=== PATIENT | male | born 2000 | race Caucasian/White ===

== ENCOUNTER 2023-12-19 10:41 | Outpatient (CLI) | payer BC, SELFPAY ==
--- NOTE | 2023-12-19 10:00 | DI.RAD_ITS ---
Exam(s) XR TOE RT GREAT XR TOE LT GREAT EXAM: XR TOE RT GREAT CLINICAL HISTORY: comparison, pain in rt foot, M79.671. TECHNIQUE: 2D digital imaging was performed. Three views of both great toes. COMPARISON: CR XR TOE LT GREAT from 12/19/2023 FINDINGS: BONES: No acute fracture is present. No bony destructive lesion is seen. JOINTS: No dislocation present. SOFT TISSUE: Swelling around the distal phalanx of left great toe, greater beneath the level of the n ail bed. No foreign body or abnormal gas collection. IMPRESSION: Soft tissue swelling of the left great toe. DATA REPOSITORY: RADIATION DOSE DELIVERED:
== END 2023-12-19 11:01 ==
PROVIDERS: PCP Nurse Practitioner Family; Visit Provider Podiatrist
DX: M79.671 Pain in right foot (principal); L03.032 Cellulitis of left toe
CPT/HCPCS: 73660

== ENCOUNTER 2024-06-02 21:09 | Emergency (ER) | payer BC, SELFPAY ==
--- NOTE | 2024-06-02 21:00 | RT.EKG_ITS ---
APPROVED REPORT Exam: Resting ECG Reason for Exam: chest pain Patient Location: E HR:80 bpm ECG Measurements Heart Rate 80 AXIS IA 120 P 46 QRSd 81 QRS 93 QT 370 T 57 QTc 428 Conclusion Sinus rhythm...normal P axis, V-rate 60- 99 ST elev, probable normal early repol pattern...ST elevation, age<55
[2024-06-02 21:14] VITALS: BP 132/74; PULSE 80; RESP 24; TEMP 37.1; O2SAT 96
[2024-06-02 21:18] VITALS: BP 132/74; PULSE 80; RESP 24; TEMP 37.1; O2SAT 96
--- NOTE | 2024-06-02 21:32 | W.ED.GENAD ---
Discharge Plan Disposition Patient Disposition: Home Condition: Stable Discharge Details Clinical Impression: Nausea vomiting and diarrhea Primary Care Provider: Harman Hilario ED Provider: Nell Castro Home Meds and New Rx's Prescriptions: No Action escitalopram oxalate 20 mg tablet 20 mg PO DAILY Qty: 90 4RF sulfamethoxazole-trimethoprim [Bactrim DS] 800-160 mg tablet 1 tab PO Q12H Qty: 14 0RF Discharge Instructions Instructions: Diarrhea, Adult ED, Nausea and Vomiting, Adult ED Additional Instructions: Please take the nausea medication as directed 20 to 30 minutes before eating or drinking anything. Small sips of fluid. Start with clear liquids and then a bland diet as tolerated. Stay away from anything fried, fatty, spicy or dairy. Please take Tylenol or Ibuprofen with food every 4-6 hours as needed for pain and swelling. Follow up with primary care provider in 3-5 days. Return to ED sooner if any worsening or concerns. Please drink Gatorade or other electrolyte drink while having diarrhea. Referrals: Harman Hilario, [facility] [Primary Care Provider] - 3 days HPI General Mode of arrival: ambulatory. Date/Time Provider Initiated Documentation: 06/02/24 21:21. Limitations to Documentation: no limitations. Information obtained by: patient, RN notes reviewed and old records reviewed. HPI Narrative: 23-year-old male presents to the ER with a chief complaint of midepigastric abdominal pain, diarrhea and vomiting this occurred approximately 1 PM today. He did eat some leftover Posta prior to onset of symptoms. He does endorse smoking marijuana daily last smoked last night. Reports occasional alcohol, he does report radiation of pain into his back. Decreased urination. Patient denies any drug use. Related Data Home Medications ?Medication ?Instructions ?Recorded ?Confirmed escitalopram oxalate 20 mg tablet 20 mg PO DAILY #90 tabs 02/15/23 01/01/24 sulfamethoxazole 800 1 tab PO Q12H #14 tabs 02/15/23 01/01/24 mg-trimethoprim 160 mg tablet (Bactrim DS) Previous Rx's ?Medication ?Instructions ?Recorded escitalopram oxalate 20 mg tablet 20 mg PO DAILY #90 tabs 02/15/23 sulfamethoxazole 800 1 tab PO Q12H #14 tabs 02/15/23 mg-trimethoprim 160 mg tablet (Bactrim DS) Allergies Allergy/AdvReac Type Severity Reaction Status Date / Time No Known Allergies Allergy Unverified 02/15/23 11:55 General Stated Complaint: Abd Prob LISBETH: 3 Review of Systems All systems reviewed & are unremarkable except as noted in HPI and below Gastrointestinal Gastrointestinal: Reports abdominal pain, Reports diarrhea, Reports nausea and Reports vomiting Exam Narrative Exam Narrative: Constitutional: Alert and oriented x3. Appears stated age. Normal body habitus. Head: Normocephalic, no trauma. Eyes: Pupils PERRL, Red reflex noted, EOM's intact. Eyelids symmetrical without lesions, discharge, or swelling. Chest: RRR, Normal S1, S2, distal pulses intact. Resp: Lungs clear to auscultation bilaterally, no wheezes, rales, or rhonchi. Abdomen: Soft, non-distended, Normoactive bowel sounds all 4 quads. Musculoskeletal: Normal gait, Moves all 4 extremities without difficulty. Skin: No suspicious rashes or lesions. Capillary refill less than 2 sec. Neurologic: Cranial nerves II-XII intact. Alert and oriented x 3. Motor: No deficits noted. Sensory: Intact bilaterally all 4 extremities. Hematologic/Lymphatic: No ecchymosis, no lymphadenopathy. Course Vital Signs Vital signs: Vital Signs Temperature 37.1 C 06/02/24 21:14 Pulse 80 06/02/24 21:14 Respiratory Rate 24 06/02/24 21:14 Blood Pressure 132/74 06/02/24 21:14 Pulse Oximetry 96 06/02/24 21:14 Temperature 37.1 C 06/02/24 21:18 Pulse 80 06/02/24 21:18 Respiratory Rate 24 06/02/24 21:18 Blood Pressure 132/74 06/02/24 21:18 Blood Pressure Position Sitting 06/02/24 21:18 Pulse Oximetry 96 06/02/24 21:18 Oxygen Delivery Method Room Air 06/02/24 21:18 Oxygen Flow Rate 0 06/02/24 21:18 Medical Decision Making 23-year-old male presents to the ER with a chief complaint of midepigastric abdominal pain, diarrhea and vomiting this occurred approximately 1 PM today. He did eat some leftover Posta prior to onset of symptoms. He does endorse smoking marijuana daily last smoked last night. Reports occasional alcohol, he does report radiation of pain into his back. Decreased urination. Patient denies any drug use. On patient reevaluation he is sleeping. No further emesis noted. Workup ordered including CBC CMP lipase urinalysis and 1 troponin. White blood cell count is 11.9, sodium potassium within normal limits anion gap 14.5 glucose 146 magnesium 1.7 total bilirubin 2.1. Lipase within normal limits. Patient is received a liter of LR, 4 mg Zofran and 15 mg of Toradol. Will give p.o. challenge Will give Zofran to go. This text was generated using [employer] system, please disregard any oddities of phrase or misspellings. Lab Data Lab results reviewed: Yes I reviewed the patient's lab results. Labs: Laboratory Tests Range/Units 06/02/24 21:30 WBC (4.4-10.8) 10^3/uL 11.90 H RBC (4.36-5.78) 10^6/uL 5.90 H Hgb (13.5-17.5) g/dL 17.2 Hct (40.0-50.0) % 48.8 MCV (80-95) fL 83 MCH (27.0-33.0) pg 29.2 MCHC (32.0-36.0) % 35.2 RDW (11.8-14.1) % 11.8 Plt Count (130-400) 10^3/uL 337 MPV (8.0-11.0) fL 9.1 Immature Gran % % 0.2 Neutrophils % % 89.0 Lymphocytes % % 3.5 Monocytes % % 6.5 Eosinophils % % 0.2 Basophils % % 0.6 Nucleated RBC % (0.0-0.3) % 0.0 Absolute Neutrophils (1.2-6.7) 10^3/uL 10.59 H Absolute Lymphocytes (1.2-3.4) 10^3/uL 0.42 L Absolute Monocytes (0.1-0.8) 10^3/uL 0.77 Absolute Eosinophils (0.0-0.7) 10^3/uL 0.02 Absolute Basophils (0.0-0.2) 10^3/uL 0.07 Sodium (136-145) mmol/L 140 Potassium (3.5-5.1) mmol/L 3.9 Chloride (98-107) mmol/L 100 Carbon Dioxide (21.0-32.0) mmol/L 25.5 Anion Gap (3-11) mmol/L 14.5 H BUN (7-18) mg/dL 17 Creatinine (0.70-1.30) mg/dL 1.2 Est GFR (CKD-EPI 2020) (mL/min/1.73m2) 86.60 Glucose (74-106) mg/dL 146 H Calcium (8.5-10.1) mg/dL 10.4 H Magnesium mg/dL 1.7 Total Bilirubin (0.2-1.0) mg/dL 2.1 H AST (15-37) U/L 23 ALT (16-63) U/L 24 Alkaline Phosphatase (46-116) U/L 66 Troponin I (<or=76) ng/L < 4 Total Protein (6.4-8.2) g/dL 9.2 H Albumin (3.4-5.0) g/dL 5.1 H Lipase (<78) U/L 19 Quality:SDOH Health Related Social Needs: No Data to Display PFSH All Active Problems (Updated 06/02/24 @ 22:36 by Nell Castro NP) Nausea vomiting and diarrhea (Acute) Pain in right foot (Acute) Paronychia of great toe, left (Acute) Anxiety (Chronic) Medical History Body mass index [BMI] pediatric, 5th percentile to less than 85th percentile for age (12/08/15) Personal history of multiple concussions (12/05/12) Ingrowing toenail (10/27/15) Right great toe: s/p resection Surgical History Circumcision Family History Mother Obesity Father Depression Substance use disorder Sister Depression Social History Smoking/Tobacco Use Status: Current every day Tobacco Type: e-cigarettes Tobacco: How many years used: 5 Quit status: has quit before Second Hand Exposure: Yes Smoking risk assessment performed?: Yes Alcohol Intake: current Alcohol Intake frequency: holidays/special occasions only Drug use: Daily Substance use type: marijuana Caregiver/Support person: No Household members: spouse and children Housing: apartment Communication Needs: None Do you need help understanding health information?: Never Pets and animals: No Sexually active: Yes Do you think of yourself as: straight/heterosexual Current gender identity: male What is your relationship status?: living with partner How often do you talk on the phone with friends or family?: three or more times per week How often do you get together with friends or relatives?: twice per week How often do you attend congregation or anabaptist services?: 1-3 times per year Do you belong to any clubs or organized social groups?: no Panel score (0-1 are the most socially isolated patients): 2 Edna/Cheondoism: Amish Special edna needs: No Seatbelt use: always Helmet use: Yes Drive intox or ride w/intox 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 Do you feel safe in your relationship?: Yes PAWSS Have you Been Recently Intoxicated or Drunk Within the Last 30 days?: No Have you Ever Experienced Previous Episodes of Alcohol Withdrawal?: No Have you ever Experienced Withdrawal Seizures?: No Have you ever Experienced Delirium Tremens(DT)s?: No Have you ever undergone Alcohol Rehabilitation Treatment (i.e, inpt ot outpatient treatment programs)?: No Have you ever Experienced Blackouts?: No Have you ever Combined Alcohol with other Downers within the last 90 days?: No Have you ever Combined Alcohol with any other Substance of Abuse during the last 90 days?: No Positive Blood Alcohol level on Presentation? [PCS.BAL]: No Evidence of Increased Autonomic Activity (i.e. HR>120, tremor, sweating, agitation, nausea)?: No Result: 0
[2024-06-02] MEDS: Lactated Ringers 1,000 ML 1000 ML IV (21:36)
[2024-06-02] MEDS: Ondansetron 4 MG/2 ML VIAL IVP (21:36)
[2024-06-02 21:46] LABS: Abs Immature Grans 0.02 10^3/uL (0.0-0.06); Absolute Basophil Count 0.07 10^3/uL (0.0-0.2); Absolute Eosinophil Count 0.02 10^3/uL (0.0-0.7); Absolute Lymphocyte Count 0.42 10^3/uL (1.2-3.4); Absolute Monocyte Count 0.77 10^3/uL (0.1-0.8); Absolute Neutrophil Count 10.59 10^3/uL (1.2-6.7); Basophils % 0.6 %; Eosinophils % 0.2 %; HCT 48.8 % (40.0-50.0); HGB 17.2 g/dL (13.5-17.5); Immature Grans % 0.2 %; Lymphocytes % 3.5 %; MCH 29.2 pg (27.0-33.0); MCHC 35.2 % (32.0-36.0); MCV 83 fL (80-95); MPV 9.1 fL (8.0-11.0); Monocytes % 6.5 %; Platelet Count 337 10^3/uL (130-400); RDW 11.8 % (11.8-14.1); RDW-SD 35.5 fL
[2024-06-02] MEDS: Ketorolac 15 MG/ML VIAL IVP (22:00)
[2024-06-02 22:16] LABS: ALT 24 U/L (16-63); AST 23 U/L (15-37); Albumin 5.1 g/dL (3.4-5.0); Alkaline Phosphatase 66 U/L (46-116); Anion Gap 14.5 mmol/L (3-11); BUN 17 mg/dL (7-18); Bilirubin, Total 2.1 mg/dL (0.2-1.0); CO2 25.5 mmol/L (21.0-32.0); CREATININE 1.2 mg/dL (0.70-1.30); Calcium 10.4 mg/dL (8.5-10.1); Chloride 100 mmol/L (98-107); Glucose 146 mg/dL (74-106); Lipase 19 U/L (<78); Magnesium 1.7 mg/dL; Potassium 3.9 mmol/L (3.5-5.1); Sodium 140 mmol/L (136-145); Total Protein 9.2 g/dL (6.4-8.2)
[2024-06-02 22:18] LABS: Troponin I < 4 ng/L (<or=76)
[2024-06-02 22:51] VITALS: BP 112/52; PULSE 79; TEMP 37.1; O2SAT 93
[2024-06-02] MEDS: Ondansetron O.D.T. 4 MG TABEF, 3 TABS/BTL PO (22:51)
== END 2024-06-02 22:52 | disposition home or self-care (01) ==
LOC: ER 23:01
PROVIDERS: Emergency Provider Registered Nurse Emergency; PCP Nurse Practitioner Family
DX: R11.2 Nausea with vomiting, unspecified (principal); R19.7 Diarrhea, unspecified; F17.290 Nicotine dependence, other tobacco product, uncomplicated
CPT/HCPCS: 80053; 83690; 93005; 96361; 96374; 96375; 99284; 83735; 84484; 85025; 93010; J1885; J2405

== ENCOUNTER 2024-06-03 15:46 | Emergency (ER) | payer BC, SELFPAY ==
--- NOTE | 2024-06-03 15:45 | RT.EKG_ITS ---
APPROVED REPORT Exam: Resting ECG Reason for Exam: Chest Pain Patient Location: E HR:73 bpm ECG Measurements Heart Rate 73 AXIS VA 121 P 60 QRSd 81 QRS 92 QT 366 T 48 QTc 404 Conclusion Sinus arrhythmia...V-rate 56- 88, variation>10%
[2024-06-03 15:50] VITALS: BP 127/81; PULSE 78; RESP 12; TEMP 36.6; O2SAT 99
--- NOTE | 2024-06-03 17:16 | ED.GENADUL_ITS ---
Discharge Plan Disposition Patient Disposition: Home Condition: Stable Discharge Details Clinical Impression: Epigastric pain Primary Care Provider: Harman Hilario ED Provider: Addi Lucas Home Meds and New Rx's Prescriptions: New omeprazole 20 mg capsule,delayed release(DR/EC) 20 mg PO DAILY Qty: 30 0RF No Action No Known Home Meds Discharge Instructions Additional Instructions: Your blood work did not show any concerning findings at this time. You can take the omeprazole daily which can help, this is also available [id number]. I placed on our follow-up list to try and see general surgery follow-up. If you feel more ill or have new symptoms such as difficulty breathing or severe worsening abdominal pain return to emergency department for reevaluation HPI General Mode of arrival: ambulatory . Date/Time Provider Initiated Documentation: 06/03/24 15:54 . Limitations to Documentation: no limitations . Information obtained by: patient . History of Present Illness 23 year old M presents to the emergency department with the chief complaint of epigastric pain, n/v, described as moderate, Quality is described as burning and aching, Patient started experiencing this day(s) (2) and it has been constant. No relieving factors improve symptom(s), No exacerbating factors reported . Patient notes no other symptoms.. Patient did receive the following treatments prior to arrival, none Related Data Home Medications ?Medication ?Instructions ?Recorded ?Confirmed Unknown [No Known Home Meds] 06/03/24 06/03/24 omeprazole 20 mg capsule,delayed 20 mg PO DAILY #30 caps 06/03/24 release Previous Rx's ?Medication ?Instructions ?Recorded omeprazole 20 mg capsule,delayed 20 mg PO DAILY #30 caps 06/03/24 release Allergies Allergy/AdvReac Type Severity Reaction Status Date / Time No Known Allergies Allergy Unverified 06/03/24 13:07 General Stated Complaint: Nausea/Vomit/Diar LISBETH: 3 Review of Systems All systems reviewed & are unremarkable except as noted in HPI and below Constitutional Constitutional: Denies chills, Denies fever(s) and Denies weakness Cardiovascular Cardiovascular: Denies chest pain and Denies dyspnea Respiratory Respiratory: Denies cough and Denies dyspnea Gastrointestinal Gastrointestinal: Reports abdominal pain, Reports nausea and Reports vomiting Neurologic Neurologic: Denies weakness Psychiatric Psychiatric: Denies depression Exam Const General: no acute distress Orientation: alert HENMT Head: normal to inspection Ears: external ears normal General nose exam: external nose normal Mouth: moist mucous membranes Eyes General: appearance normal, both eyes and all related structures Neck Neck: normal visual inspection Resp Effort & Inspection: normal respiratory effort and able to speak in complete sentences Auscultation: clear to auscultation bilaterally Cardio Rate: regular rate GI Palpation: soft, not firm, no guarding and tender Skin General skin exam: no rashes or lesions noted Neuro General: patient alert and patient oriented x3 Extrem General: normal to inspection Psych Mental Status: mental status grossly normal Course Vital Signs Vital signs: Vital Signs Temperature 36.6 C 06/03/24 15:50 Pulse 78 06/03/24 15:50 Respiratory Rate 12 06/03/24 15:50 Blood Pressure 127/81 06/03/24 15:50 Pulse Oximetry 99 06/03/24 15:50 Temperature 36.6 C 06/03/24 15:50 Temperature Source Oral 06/03/24 15:50 Pulse 78 06/03/24 15:50 Respiratory Rate 12 06/03/24 15:50 Blood Pressure 127/81 06/03/24 15:50 Blood Pressure Position Sitting 06/03/24 15:50 Pulse Oximetry 99 06/03/24 15:50 Oxygen Delivery Method Room Air 06/03/24 15:50 Oxygen Flow Rate 0 06/03/24 15:50 Pain Level 10 06/03/24 15:50 Medical Decision Making 23-year-old male with no chronic medical problems comes in with 1 day of persistent nausea vomiting and states he had vomiting that appeared to be coffee-ground in appearance. He was seen yesterday and discharged. He says despite Zofran he still has symptoms. He has epigastric discomfort. Denies any severe chest pain. No difficulty breathing or fevers. He denies any drug use other than marijuana. His abdomen is soft and nondistended and he has mild epigastric tenderness on exam without peritoneal signs, no Vera sign. I suspect gastritis versus possible ulcer versus uziel garcia tear. Hemodynamically stable. Will check cbc, cmp, lipase and treat with compazine, protonix and mylanta and reassess Labs reassuring, patient sleeping on reassessment awakens easily to voice. Given reassuring workup I feel he is stable for discharge to follow-up outpatient with general surgery to discuss a possible endoscopy. Return precautions given Differential Diagnosis Differential Diagnosis: gastritis, cannabinoid hyperemsesis Medical Records Medical records reviewed: Yes I reviewed the patient's medical records. Lab Data Lab results reviewed: Yes I reviewed the patient's lab results. Quality:SDOH Health Related Social Needs: No Data to Display PFSH All Active Problems (Updated 06/03/24 @ 19:48 by Addi Lucas MD) Epigastric pain (Acute) Nausea vomiting and diarrhea (Acute) Pain in right foot (Acute) Paronychia of great toe, left (Acute) Anxiety (Chronic) Medical History Body mass index [BMI] pediatric, 5th percentile to less than 85th percentile for age (12/08/15) Personal history of multiple concussions (12/05/12) Ingrowing toenail (10/27/15) Right great toe: s/p resection Surgical History Circumcision Family History Mother Obesity Father Depression Substance use disorder Sister Depression Social History Smoking/Tobacco Use Status: Current every day Tobacco Type: e-cigarettes Tobacco: How many years used: 5 Quit status: has quit before Second Hand Exposure: Yes Smoking risk assessment performed?: Yes Alcohol Intake: current Alcohol Intake frequency: holidays/special occasions only Drug use: Daily Substance use type: marijuana Caregiver/Support person: No Household members: spouse and children Housing: apartment Communication Needs: None Do you need help understanding health information?: Never Pets and animals: No Sexually active: Yes Do you think of yourself as: straight/heterosexual Current gender identity: male What is your relationship status?: living with partner How often do you talk on the phone with friends or family?: three or more times per week How often do you get together with friends or relatives?: twice per week How often do you attend advent or uatsdin services?: 1-3 times per year Do you belong to any clubs or organized social groups?: no Panel score (0-1 are the most socially isolated patients): 2 Edna/Scientologist: Roman Catholic Special dena needs: No Seatbelt use: always Helmet use: Yes Drive intox or ride w/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
[2024-06-03] MEDS: Pantoprazole 40 MG VIAL IVP (18:28)
[2024-06-03] MEDS: MYLANTA 30 ML, LIDOCAINE 2% VISCOUS UD 15 ML PO (18:28)
[2024-06-03] MEDS: Prochlorperazine 10 MG/2 ML VIAL IVP (18:28)
[2024-06-03] MEDS: Normal Saline 1,000 ML 1000 ML IV (18:29)
[2024-06-03 18:30] LABS: Abs Immature Grans 0.01 10^3/uL (0.0-0.06); Absolute Basophil Count 0.03 10^3/uL (0.0-0.2); Absolute Monocyte Count 0.87 10^3/uL (0.1-0.8); Absolute Neutrophil Count 5.49 10^3/uL (1.2-6.7); Basophils % 0.4 %; HCT 45.7 % (40.0-50.0); HGB 15.9 g/dL (13.5-17.5); Immature Grans % 0.1 %; Lymphocytes % 15.8 %; MCHC 34.8 % (32.0-36.0); MCV 83 fL (80-95); MPV 8.8 fL (8.0-11.0); Monocytes % 11.4 %; Neutrophils % 72.3 %; Platelet Count 275 10^3/uL (130-400); RBC 5.49 10^6/uL (4.36-5.78); RDW 11.9 % (11.8-14.1); RDW-SD 36.1 fL
[2024-06-03 18:48] LABS: ALT 23 U/L (16-63); AST 18 U/L (15-37); Albumin 4.2 g/dL (3.4-5.0); Alkaline Phosphatase 55 U/L (46-116); Anion Gap 10.5 mmol/L (3-11); BUN 15 mg/dL (7-18); Bilirubin, Direct 0.2 mg/dL (0.0-0.2); Bilirubin, Total 2.4 mg/dL (0.2-1.0); CO2 28.5 mmol/L (21.0-32.0); Calcium 9.4 mg/dL (8.5-10.1); Chloride 98 mmol/L (98-107); Estimated GFR 107.78 (mL/min/1.73m2); Glucose 108 mg/dL (74-106); Lipase 22 U/L (<78); Magnesium 1.9 mg/dL; Potassium 3.6 mmol/L (3.5-5.1); Sodium 137 mmol/L (136-145); Total Protein 8.3 g/dL (6.4-8.2)
[2024-06-03 20:05] VITALS: BP 127/81; PULSE 78; RESP 12; O2SAT 99
[2024-06-03 20:41] VITALS: BP 127/81; PULSE 78; RESP 12; TEMP 36.6; O2SAT 99
== END 2024-06-03 20:42 | disposition home or self-care (01) ==
PROVIDERS: Emergency Provider Emergency Medicine; PCP Nurse Practitioner Family
DX: R10.13 Epigastric pain (principal); R07.9 Chest pain, unspecified; R19.7 Diarrhea, unspecified; F17.290 Nicotine dependence, other tobacco product, uncomplicated
CPT/HCPCS: 36415; 80053; 83690; 93005; 96361; 96374; 96375; 99284; 82248; 83735; 85025; 93010; J0780; J2470

== ENCOUNTER 2024-06-18 08:40 | Emergency (ER) | payer BC, SELFPAY ==
[2024-06-18 08:41] VITALS: BP 129/65; PULSE 95; RESP 16; TEMP 36.9; O2SAT 97
--- NOTE | 2024-06-18 09:04 | DI.CT_ITS ---
Exam(s) CT ABDOMEN PELVIS W EXAM: CT ABDOMEN PELVIS W CLINICAL HISTORY: LUQ abd pain. TECHNIQUE: Imaging Protocol: Axial computed tomography images with coronal and sagittal reformatted images were created and reviewed CONTRAST MATERIAL: Intravenous: Omnipaque 350 Contrast volume:75 ml Oral: no COMPARISON: No exams were available for comparison FINDINGS: ABDOMEN and PELVIS: Exam is limited by lack of oral contrast and paucity of intra-abdominal fat. Lung Bases: No acute findings. Liver: Normal density. No suspicious mass. Gallbladder and biliary tract: No radiodense calculus. No wall thickening or pericholecystic fluid. No biliary dilation. Pancreas: Normal density. No abnormal calcifications or inflammatory process. No evidence of mass. Spleen: Normal. Kidneys: Normal size, contour and axis. No radiodense stones. No obstructive uropathy. No suspicious masses seen. Adrenal glands: No masses seen. Vasculature: Abdominal aorta non-dilated. Soft tissues: Unremarkable. Bladder: No gross wall thickening. No calculi.No focal mass. Bowel: No obstruction. No bowel wall thickening. Appendix is normal. Ingested tablet noted within the stomach. Peritoneal cavity: No ascites. No focal collection. No mesenteric inflammatory response. No free air . Bones: Unremarkable for age. Reproductive organs: Unremarkable. Lymph nodes: No pathologically enlarged lymph nodes. IMPRESSION:: No acute abnormality in the abdomen or pelvis. RADIATION DOSE DELIVERED: 219.29mGy.cm Total DLP DATA REPOSITORY: All CT scans at this facility are submitted to the National Radiology Data Registry (NRDR) Dose Index Registry (DIR) with the [employer] (ACR). RADIATION OPTIMIZATION: All CT scans at this facility use at least one of these dose optimization te chniques: automated exposure control; mA and/or kV adjustment per patient size (includes targeted exa ms where dose is matched to clinical indication); or iterative reconstruction.
--- NOTE | 2024-06-18 09:06 | ED.GENADUL_ITS ---
Discharge Plan Disposition Patient Disposition: Home Discharge Details Clinical Impression: Abdominal pain Primary Care Provider: Harman Hilario ED Provider: Alan Coronado Home Meds and New Rx's Prescriptions: Continued sucralfate [Carafate] 1 gram tablet 1 g PO QACHS Qty: 120 1RF omeprazole 20 mg capsule,delayed release(DR/EC) 20 mg PO DAILY Qty: 30 0RF Discharge Instructions Instructions: Abdominal Pain, Adult ED Additional Instructions: At this time your CT scan along with blood work shows no emergent findings but continue to monitor your symptoms and return for any new or worsening of your condition Please continue to take the medication prescribed and keep your follow-up with general surgery for further investigation of your symptoms Stand Alone Forms: Work Release Referrals: [facility] [Provider Group] (As previously arranged) Discharge Data Discharge Date/Time-TO BE ENTERED AT DEPARTURE: 06/18/24 10:27 HPI General Mode of arrival: ambulatory . Date/Time Provider Initiated Documentation: 06/18/24 08:50 . Limitations to Documentation: no limitations . Information obtained by: patient and RN notes reviewed . History of Present Illness 23 year old M presents to the emergency department with the chief complaint of Left upper quadrant abdominal pain, described as moderate and similar to prior episodes, with intensity rated at 8. Quality is described as aching and sharp, and is localized to the abdomen. Patient reports no radiation. Patient started experiencing this hour(s) (2) and it has been constant. No relieving factors improve symptom(s), Movement worsens symptoms . Patient did receive the following treatments prior to arrival, none Related Data Home Medications ?Medication ?Instructions ?Recorded ?Confirmed omeprazole 20 mg capsule,delayed 20 mg PO DAILY #30 caps 06/03/24 06/18/24 release sucralfate 1 gram tablet (Carafate) 1 g PO QACHS #120 tabs 06/05/24 06/18/24 Previous Rx's ?Medication ?Instructions ?Recorded omeprazole 20 mg capsule,delayed 20 mg PO DAILY #30 caps 06/03/24 release sucralfate 1 gram tablet (Carafate) 1 g PO QACHS #120 tabs 06/05/24 Allergies Allergy/AdvReac Type Severity Reaction Status Date / Time No Known Allergies Allergy Unverified 06/18/24 08:49 General Stated Complaint: Abd Prob LISBETH: 3 Review of Systems Constitutional Constitutional: Denies chills, Denies fever(s) and Reports poor appetite Cardiovascular Cardiovascular: Denies chest pain and Denies dyspnea Respiratory Respiratory: Denies cough and Denies dyspnea Gastrointestinal Gastrointestinal: Reports as per HPI, Reports abdominal pain, Denies melena, Denies constipation, Reports nausea and Reports vomiting Genitourinary Genitourinary: Denies hematuria, Denies difficulty urinating, Denies urinary hesitancy, Denies urinary incontinence and Denies urinary urgency Integumentary/Breasts Skin/Breast: Denies rash Exam Const General: cooperative Orientation: alert, awake and oriented x3 Resp Effort & Inspection: normal respiratory effort and able to speak in complete sentences Auscultation: clear to auscultation bilaterally Cardio Rate: regular rate Rhythm: regular rhythm Heart Sounds: S1 normal and S2 normal GI Palpation: soft, no hepatosplenomegaly, not firm, no guarding, no masses, no pulsatile masses, not rigid, no splenomegaly and tender in the epigastrum and in the LUQ; not at McBurney's point, Vera's sign negative, with no rebound tend erness and Rovsing's sign negative Auscultation: hypoactive bowel sounds Back/Spine/Pelvis Back: no CVA tenderness Neuro General: patient alert, patient awake, patient oriented x3, gait normal and moves all extremities Course Vital Signs Vital signs: Vital Signs Temperature 36.9 C 06/18/24 08:41 Pulse 95 H 06/18/24 08:41 Respiratory Rate 16 06/18/24 08:41 Blood Pressure 129/65 06/18/24 08:41 Pulse Oximetry 97 06/18/24 08:41 Temperature 36.9 C 06/18/24 08:41 Temperature Source Oral 06/18/24 08:41 Pulse 95 H 06/18/24 08:41 Respiratory Rate 16 06/18/24 08:41 Blood Pressure 129/65 06/18/24 08:41 Blood Pressure Position Sitting 06/18/24 08:41 Pulse Oximetry 97 06/18/24 08:41 Oxygen Delivery Method Room Air 06/18/24 08:41 Oxygen Flow Rate 0 06/18/24 08:41 Pain Level 6 06/18/24 08:41 Medical Decision Making Patient presenting to the emergency department for chief complaint of left upper quadrant abdominal pain. Patient states this has been going on for the past 2 weeks and was seen in the emergency department along with primary care multiple times over the past couple weeks that started out what he thought was more of a stomach bug but now they are concerned about ulceration. He did initially have some coffee-ground/bloody emesis that has fully resolved and he had been feeling better after being placed up on omeprazole and Carafate. This morning after waking up he had mild discomfort but as the morning went noticed significant increase in pain to the point that his employer was concerned and asked him to come be evaluated by the emergency department. He did drink some Gatorade in the parking lot before coming in and stated some relief of that but not full resolution. Physical exam shows significant point tenderness to the left upper quadrant along with the epigastric area exam is otherwise negative. Given multiple visits with some worsening of symptoms and no imaging performed I do feel that imaging is prudent at this point to fully evaluate abdominal pain along with labs. Differential to include continued gastritis, peptic ulcer, pancreatitis, or small bowel pathology. Pending results will give patient acetaminophen. Reviewed patient's labs and CBC is overall nondiagnostic, along with CMP including lipase with no emergent findings noted. CT imaging shows no acute findings per radiologist interpretation. Patient does state improvement of overall symptoms even to the point that he is wanting to go back to work which I feel is reasonable if he is feeling better. Patient was encouraged to continue follow-up with general surgery for further evaluation of peptic ulcer. After discussion of diagnosis and plan of care patient has no further needs, questions, or concerns and states clear understanding to return to the emergency department for any worsening symptoms. This documentation was generated using [employer] dictation system, please disregard any oddities of phrase or misspellings. Medical Records Medical records reviewed: Yes I reviewed the patient's medical records. Medical records narrative: Reviewed 2 previous emergency department visit notes Imaging Data Radiologic Study: Imaging: CT Scan Radiologist's impression: Exam(s) a CT:CT abdomen & pelvis w Exam(s) CT ABDOMEN PELVIS W EXAM: CT ABDOMEN PELVIS W CLINICAL HISTORY: LUQ abd pain. TECHNIQUE: Imaging Protocol: Axial computed tomography images with coronal and sagittal reformatted images were created and reviewed CONTRAST MATERIAL: Intravenous: Omnipaque 350 Contrast volume:75 ml Oral: no COMPARISON: No exams were available for comparison FINDINGS: ABDOMEN and PELVIS: Exam is limited by lack of oral contrast and paucity of intra-abdominal fat. Lung Bases: No acute findings. Liver: Normal density. No suspicious mass. Gallbladder and biliary tract: No radiodense calculus. No wall thickening or pericholecystic fluid. No biliary dilation. Pancreas: Normal density. No abnormal calcifications or inflammatory process. No evidence of mass. Spleen: Normal. Kidneys: Normal size, contour and axis. No radiodense stones. No obstructive uropathy. No suspicious masses seen. Adrenal glands: No masses seen. Vasculature: Abdominal aorta non-dilated. Soft tissues: Unremarkable. Bladder: No gross wall thickening. No calculi.No focal mass. Bowel: No obstruction. No bowel wall thickening. Appendix is normal. Ingested tablet noted within the stomach. Peritoneal cavity: No ascites. No focal collection. No mesenteric inflammatory response. No free air. Bones: Unremarkable for age. Reproductive organs: Unremarkable. Lymph nodes: No pathologically enlarged lymph nodes. IMPRESSION:: No acute abnormality in the abdomen or pelvis. Lab Data Lab results reviewed: Yes I reviewed the patient's lab results. Quality:SDOH Health Related Social Needs: No Data to Display PFSH All Active Problems (Updated 06/18/24 @ 10:10 by Alan Coronado NP) Abdominal pain (Acute) Epigastric pain (Acute) Nausea vomiting and diarrhea (Acute) Pain in right foot (Acute) Paronychia of great toe, left (Acute) Anxiety (Chronic) Medical History Body mass index [BMI] pediatric, 5th percentile to less than 85th percentile for age (12/08/15) Personal history of multiple concussions (12/05/12) Ingrowing toenail (10/27/15) Right great toe: s/p resection Surgical History Circumcision Family History Mother Obesity Father Depression Substance use disorder Sister Depression Social History Smoking/Tobacco Use Status: Current every day Tobacco Type: e-cigarettes Tobacco: How many years used: 5 Quit status: has quit before Second Hand Exposure: Yes Smoking risk assessment performed?: Yes Alcohol Intake: current Alcohol Intake frequency: holidays/special occasions only Drug use: Daily Substance use type: marijuana Caregiver/Support person: No Household members: spouse and children Housing: apartment Communication Needs: None Do you need help understanding health information?: Never Pets and animals: No Sexually active: Yes Do you think of yourself as: straight/heterosexual Current gender identity: male What is your relationship status?: living with partner How often do you talk on the phone with friends or family?: three or more times per week How often do you get together with friends or relatives?: twice per week How often do you attend yazidi or confucianism services?: 1-3 times per year Do you belong to any clubs or organized social groups?: no Panel score (0-1 are the most socially isolated patients): 2 Edna/Mosque: Zoroastrian Special edna needs: No Seatbelt use: always Helmet use: Yes 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
[2024-06-18 09:11] LABS: Abs Immature Grans 0.03 10^3/uL (0.0-0.06); Absolute Basophil Count 0.02 10^3/uL (0.0-0.2); Absolute Eosinophil Count 0.03 10^3/uL (0.0-0.7); Absolute Lymphocyte Count 1.14 10^3/uL (1.2-3.4); Absolute Neutrophil Count 7.85 10^3/uL (1.2-6.7); Basophils % 0.2 %; Eosinophils % 0.3 %; HCT 42.4 % (40.0-50.0); HGB 14.3 g/dL (13.5-17.5); Immature Grans % 0.3 %; Lymphocytes % 11.6 %; MCH 28.8 pg (27.0-33.0); MCHC 33.7 % (32.0-36.0); MCV 86 fL (80-95); MPV 9.1 fL (8.0-11.0); Monocytes % 8.1 %; Neutrophils % 79.5 %; Platelet Count 350 10^3/uL (130-400); RBC 4.96 10^6/uL (4.36-5.78); RDW 12.3 % (11.8-14.1); RDW-SD 38.4 fL; WBC 9.87 10^3/uL (4.4-10.8)
[2024-06-18] MEDS: Normal Saline - Diluent 50 ML VIAL IJ (09:20)
[2024-06-18] MEDS: Omnipaque 350 MG/ML 100 ML BTL IJ (09:21)
[2024-06-18 09:35] LABS: ALT 23 U/L (16-63); AST 15 U/L (15-37); Albumin 3.8 g/dL (3.4-5.0); Alkaline Phosphatase 59 U/L (46-116); Anion Gap 7.4 mmol/L (3-11); BUN 10 mg/dL (7-18); Bilirubin, Total 0.9 mg/dL (0.2-1.0); CO2 28.6 mmol/L (21.0-32.0); CREATININE 0.8 mg/dL (0.70-1.30); Calcium 9.1 mg/dL (8.5-10.1); Chloride 105 mmol/L (98-107); Estimated GFR 126.74 (mL/min/1.73m2); Glucose 109 mg/dL (74-106); Lipase 27 U/L (<78); Potassium 3.8 mmol/L (3.5-5.1); Sodium 141 mmol/L (136-145); Total Protein 8.1 g/dL (6.4-8.2)
[2024-06-18] MEDS: ACETAMINOPHEN 1,000 MG/100 ML BAG 400 MG IVPB (09:56)
[2024-06-18] MEDS: Normal Saline Flush 10 ML SYR IVP (09:57)
[2024-06-18 10:19] VITALS: BP 124/64; PULSE 84; RESP 16; O2SAT 99
== END 2024-06-18 10:27 | disposition home or self-care (01) ==
PROVIDERS: Emergency Provider Nurse Practitioner Family; PCP Nurse Practitioner Family
DX: R10.12 Left upper quadrant pain (principal); F17.290 Nicotine dependence, other tobacco product, uncomplicated
CPT/HCPCS: 36415; 80053; 83690; 96374; 99285; 74177; 83735; 85025; 99284; J0131; J3490